=== PATIENT | male | born 1985 | race African-American/Black ===

== ENCOUNTER 2024-01-19 12:17 | Emergency (ER) | payer OTHER, SELFPAY ==
--- NOTE | 2024-01-19 12:15 | RT.EKG_ITS ---
APPROVED REPORT Exam: Resting ECG Reason for Exam: HTN Patient Location: E HR:81 bpm ECG Measurements Heart Rate 81 AXIS NJ 160 P 24 QRSd 104 QRS -18 QT 385 T 20 QTc 446 Conclusion Sinus rhythm 81 no stemi
[2024-01-19 12:20] VITALS: BP 188/138; PULSE 89; RESP 18; TEMP 36.8; O2SAT 97
--- NOTE | 2024-01-19 12:30 | W.ED.GENAD ---
Discharge Plan Disposition Patient Disposition: Home Condition: Stable Discharge Details Clinical Impression: Hypertensive urgency Primary Care Provider: Jesenia Garces ED Provider: Bartolome Forde Home Meds and New Rx's Prescriptions: No Action olanzapine 5 mg tablet 5 mg PO DAILY Discharge Instructions Instructions: High blood pressure emergencies, Medicines for high blood pressure, DASH diet Additional Instructions: You were seen in the emergency department for your hypertension, you were seen by your PCP earlier today and he did send a prescription to your pharmacy for labetalol 100 mg twice per day, I suggest to begin taking this medication this evening. Please return to the emergency department for extremely high blood pressure readings with sudden onset severe headache, visual changes, chest pain, dark urine otherwise you may return to the ER for any emergent concerns. Referrals: Jesenia Garces [Primary Care Provider] - Discharge Data Discharge Date/Time-TO BE ENTERED AT DEPARTURE: 01/19/24 15:00 HPI General Date/Time Provider Initiated Documentation: 01/19/24 12:19. HPI Narrative: 38 year-old male presents to ED today by POV/ambulating with a chief complaint of sent by PCP for extreme hypertension with onset noted chronically, patient states his family has resistant hypertension. Quality described as denies symptoms, no headache or visual changes, no flank pain, no urinary symptoms, no palpitations or chest pain. Severity is described as 0/10. Palliating factors include PCP sent labetalol but patient has not picked up from the pharmacy yet. Provoking factors include nothing specific. Patient not anticoagulated. Related Data Home Medications ?Medication ?Instructions ?Recorded ?Confirmed olanzapine 5 mg tablet 5 mg PO DAILY 01/19/24 01/19/24 Allergies Allergy/AdvReac Type Severity Reaction Status Date / Time acetaminophen (From Tylenol) AdvReac Intermediate Agitation Verified 01/19/24 12:28 diphenhydramine AdvReac Mild Other (See Verified 01/19/24 12:28 Comment) General Stated Complaint: GenMedical REESE: 3 Review of Systems All systems reviewed & are unremarkable except as noted in HPI and below Exam Narrative Exam Narrative: GENERAL APPEARANCE: Well-nourished, non-toxic, awake and alert, atraumatic, no acute distress. SKIN: Warm, pink, dry, intact, without rashes/lesions/ulcerations. HEAD: Normocephalic, atraumatic, normal hair distribution for gender/age. EYES: Normal conjunctiva, no exudates on lids/lashes. ENT: Nares patent, no circumoral cyanosis, no facial swelling NECK: Supple, trachea midline, painless cervical ROM. LUNGS/CHEST: Lungs CTA bilaterally, non-labored respirations, normal A/P diameter, symmetrical expansion, no chest wall deformity HEART (CV/PV): Regular rate and rhythm without murmur, no peripheral edema, no JVD. ABDOMEN: Soft, non-distended, no guarding. MSK: Normal ROM, no swelling/deformity to bilateral UEs or LEs, moving all extremities without weakness, no cyanosis, spine midline without tenderness, normal curvature. NEURO: Mental Status AAOx4 - alert to person, place, time, events No facial droop, no forehead involvement. Motor: No focal weakness - strength 5/5 in bilateral UEs and LEs, proximal and distal, symmetric. Sensory: sensation intact to light touch globally. Gait normal: patient ambulated without ataxia into ED room. PSYCH: euthymic, cooperative, pleasant, appropriate speech Course Vital Signs Vital signs: Vital Signs Temperature 36.8 C 01/19/24 12:20 Pulse 89 01/19/24 12:20 Respiratory Rate 18 01/19/24 12:20 Blood Pressure 188/138 H 01/19/24 12:20 Pulse Oximetry 97 01/19/24 12:20 Temperature 36.8 C 01/19/24 12:20 Pulse 89 01/19/24 12:20 Respiratory Rate 18 01/19/24 12:20 Respiratory Effort Normal 01/19/24 12:24 Blood Pressure 188/138 H 01/19/24 12:20 Pulse Oximetry 97 01/19/24 12:20 Oxygen Delivery Method Room Air 01/19/24 12:20 Oxygen Flow Rate 0 01/19/24 12:20 Pain Level 0 01/19/24 12:20 Medical Decision Making This dictation utilizes [id number] dictation software and may contain unedited grammatical errors. 38 year-old male presents to ED today by POV/ambulating with a chief complaint of sent by PCP for extreme hypertension with onset noted chronically, patient states his family has resistant hypertension. Quality described as denies symptoms, no headache or visual changes, no flank pain, no urinary symptoms, no palpitations or chest pain. Severity is described as 0/10. Palliating factors include PCP sent labetalol but patient has not picked up from the pharmacy yet. Provoking factors include nothing specific. Patients' medical history: Hypertension, suicidal ideation well-managed on Paxil. Family and social history: Noncontributory. Pertinent exam findings / vital signs include benign cardiopulmonary exam, neuro intact, resting comfortably. Differential / pathologies of concern include hypertensive emergency, hypertensive urgency. Diagnostic studies of: -CBC, CMP, troponin, TSH, UA, EKG. -CBC is benign, CMP is benign -Troponin is negative -TSH within normal limits -UA shows some proteinuria -EKG without ectopy, ST changes, T wave inversions or arrhythmia, NSR @81bpm Interventions of: -None, recommend he start at home labetalol with close follow-up by PCP. ED Course/Assessment/Plan: 38-year-old male presents with significant hypertension 180s over 120, is proteinuria but no other signs of endorgan damage, normal kidney function, I stressed that he should start labetalol and monitor his blood pressures with close follow-up by PCP and strict return criteria for any sudden onset headaches or visual changes or chest pain or palpitations. Findings not consistent with hypertensive emergency. Disposition of hypertensive urgency. Patient verbalized understanding of the plan and return to ED criteria and engaged in shared decision making. Medical Records Medical records reviewed: Yes I reviewed the patient's medical records. Lab Data Lab results reviewed: Yes I reviewed the patient's lab results. Labs: Laboratory Tests Range/Units 01/19/24 01/19/24 13:22 14:06 WBC (4.4-10.8) 10^3/uL 9.19 RBC (4.36-5.78) 10^6/uL 5.24 Hgb (13.5-17.5) g/dL 15.5 Hct (40.0-50.0) % 46.8 MCV (80-95) fL 89 MCH (27.0-33.0) pg 29.6 MCHC (32.0-36.0) % 33.1 RDW (11.8-14.1) % 13.2 Plt Count (130-400) 10^3/uL 293 MPV (8.0-11.0) fL 11.6 H Immature Gran % % 0.7 Neutrophils % % 63.1 Lymphocytes % % 26.6 Monocytes % % 6.5 Eosinophils % % 2.6 Basophils % % 0.5 Nucleated RBC % (0.0-0.3) % 0.0 Absolute Neutrophils (1.2-6.7) 10^3/uL 5.80 Absolute Lymphocytes (1.2-3.4) 10^3/uL 2.44 Absolute Monocytes (0.1-0.8) 10^3/uL 0.60 Absolute Eosinophils (0.0-0.7) 10^3/uL 0.24 Absolute Basophils (0.0-0.2) 10^3/uL 0.05 Sodium (136-145) mmol/L 142 Potassium (3.5-5.1) mmol/L 4.2 Chloride (98-107) mmol/L 105 Carbon Dioxide (21.0-32.0) mmol/L 25.4 Anion Gap (3-11) mmol/L 11.6 H BUN (7-18) mg/dL 15 Creatinine (0.70-1.30) mg/dL 1.0 Est GFR (CKD-EPI 2020) (mL/min/1.73m2) 98.18 Glucose (74-106) mg/dL 98 Calcium (8.5-10.1) mg/dL 9.5 Total Bilirubin (0.2-1.0) mg/dL 0.40 AST (15-37) U/L 21 ALT (16-63) U/L 50 Alkaline Phosphatase (46-116) U/L 138 H Troponin I (<or=76) ng/L 17 Total Protein (6.4-8.2) g/dL 8.4 H Albumin (3.4-5.0) g/dL 4.4 TSH (0.36-3.74) uIU/mL 0.82 Urine Color (Yellow) Yellow Urine Clarity (Clear) Clear Urine pH (5-8) 6.5 Ur Specific [place] (1.005-1.025) 1.020 Urine Protein (Neg-Trace) mg/dL 30 H Urine Ketones (Negative) mg/dL Negative Urine Blood (Negative) Negative Urine Nitrite (Negative) Negative Urine Bilirubin (Negative) Negative Urine Urobilinogen (Up to 0.2) mg/dL 0.2 Ur Leukocyte Esterase (Negative) Negative Urine RBC (0-2) HPF Negative Urine WBC (0-5) HPF Negative Ur Epithelial Cells (Negative) HPF Rare Urine Crystals (Negative) HPF Negative Urine Bacteria (Negative) HPF Negative Urine Casts (Negative) LPF Negative Urine Mucus (Negative) Negative Ur Culture Indicated? No Urine Glucose (Negative) mg/dL Negative Quality:SDOH Health Related Social Needs: No Data to Display PFSH All Active Problems (Updated 01/19/24 @ 14:47 by JESSICA Medina) Hypertensive urgency (Acute) Social History Smoking/Tobacco Use Status: Never Smoking risk assessment performed?: Yes Alcohol Intake: never Drug use: Never Substance use type: does not use Housing: house
[2024-01-19 13:37] LABS: Abs Immature Grans 0.06 10^3/uL (0.0-0.06); Absolute Basophil Count 0.05 10^3/uL (0.0-0.2); Absolute Eosinophil Count 0.24 10^3/uL (0.0-0.7); Absolute Lymphocyte Count 2.44 10^3/uL (1.2-3.4); Basophils % 0.5 %; Eosinophils % 2.6 %; HCT 46.8 % (40.0-50.0); HGB 15.5 g/dL (13.5-17.5); Immature Grans % 0.7 %; Lymphocytes % 26.6 %; MCH 29.6 pg (27.0-33.0); MCHC 33.1 % (32.0-36.0); MCV 89 fL (80-95); MPV 11.6 fL (8.0-11.0); Monocytes % 6.5 %; Neutrophils % 63.1 %; Platelet Count 293 10^3/uL (130-400); RBC 5.24 10^6/uL (4.36-5.78); RDW 13.2 % (11.8-14.1); RDW-SD 43.7 fL; WBC 9.19 10^3/uL (4.4-10.8)
[2024-01-19 14:07] LABS: ALT 50 U/L (16-63); AST 21 U/L (15-37); Albumin 4.4 g/dL (3.4-5.0); Alkaline Phosphatase 138 U/L (46-116); Anion Gap 11.6 mmol/L (3-11); BUN 15 mg/dL (7-18); CO2 25.4 mmol/L (21.0-32.0); Calcium 9.5 mg/dL (8.5-10.1); Chloride 105 mmol/L (98-107); Estimated GFR 98.18 (mL/min/1.73m2); Glucose 98 mg/dL (74-106); Potassium 4.2 mmol/L (3.5-5.1); Sodium 142 mmol/L (136-145); TSH (W/Ref FT4) 0.82 uIU/mL (0.36-3.74); Total Protein 8.4 g/dL (6.4-8.2); Troponin I 17 ng/L (<or=76)
[2024-01-19 14:09] VITALS: RESP 18
[2024-01-19 14:19] LABS: Bilirubin Negative (Negative); Blood Negative (Negative); Clarity Clear (Clear); Glucose Negative (Negative); Ketones Negative (Negative); Leukocyte Esterase Negative (Negative); Nitrite Negative (Negative); Urobilinogen 0.2 mg/dL (Up to 0.2); pH 6.5 (5-8)
[2024-01-19 14:23] LABS: Bacteria Negative HPF (Negative); C & S Indicated? No; Casts Negative LPF (Negative); Crystals Negative HPF (Negative); Epithelial Cells Rare HPF (Negative); Mucus Negative (Negative); RBC Negative HPF (0-2); WBC Negative HPF (0-5)
[2024-01-19 14:36] VITALS: BP 188/129; PULSE 85; O2SAT 97
== END 2024-01-19 15:00 | disposition home or self-care (01) ==
PROVIDERS: Emergency Provider Physician Assistant; PCP Nurse Practitioner Family
DX: I16.0 Hypertensive urgency (principal); R80.9 Proteinuria, unspecified
CPT/HCPCS: 80053; 93005; 99284; 81003; 81015; 84443; 84484; 85025; 93010; 99283